=== PATIENT | female | born 1985 | race American Indian/Alaskan Native ===

== ENCOUNTER 2017-05-10 18:12 | Emergency (ER) | payer MEDICAID ==
[2017-05-10] MEDS ORDERED: XYLOCAINE 1% MPF 5 mL INFILTRATI ONE (21:03)
[2017-05-10] MEDS ORDERED: ROCEPHIN IM ONE (21:03)
[2017-05-10] MEDS ORDERED: ZITHROMAX PO ONE (21:03)
--- NOTE | 2017-05-10 21:37 | Emergency Department Report ---
ED General Adult HPI - General Chief complaint: Allergic Reaction Stated complaint: POSSIBLE ALLERGIC REACTION Time Seen by Provider: 05/10/17 19:44 Source: patient Mode of arrival: Ambulatory Limitations: No Limitations - History of Present Illness Initial comments: PT states she has been exposed to chlamydia. PT states she has had vaginal discharge. pt denies vagina itching or dysuria. PT also reports itchy rash on her face x 2 days. PT states she has been wearing more make up this year and she thinks she may be allergic to a new foundation, but she has also been using new skin products. MD Complaint: vaginal discharge, facial rash Onset/Timin -: Gradual, days(s) Location: face (rash ) Quality: other (face - itches ) Consistency: constant Improves with: none Worsens with: none Associated Symptoms: denies: fever/chills, loss of appetite, nausea/vomiting Treatments Prior to Arrival: none - Related Data Allergies Allergy/AdvReac Type Severity Reaction Status Date / Time Latex, Natural Rubber Allergy Rash Verified 05/10/17 18:41 ED Review of Systems ROS: Stated complaint: POSSIBLE ALLERGIC REACTION Other details as noted in HPI Comment: All other systems reviewed and negative ENT: denies: throat pain Respiratory: denies: shortness of breath Gastrointestinal: denies: abdominal pain Genitourinary: discharge. denies: dysuria, abnormal menses Skin: rash ED Past Medical Hx - Past Medical History Previous Medical History?: No - Surgical History Past Surgical History?: No - Social History Smoking Status: Never Smoker Substance Use Type: None ED Physical Exam - General Limitations: No Limitations General appearance: alert, in no apparent distress - Head Head exam: Present: atraumatic, normocephalic, other (urticaria to face, no edema noted ). Absent: normal inspection - Eye Eye exam: Present: normal appearance, PERRL. Absent: conjunctival injection, nystagmus - ENT ENT exam: Present: normal exam, normal external ear exam - Neck Neck exam: Present: normal inspection, full ROM - Respiratory Respiratory exam: Present: normal lung sounds bilaterally. Absent: respiratory distress, chest wall tenderness - Cardiovascular Cardiovascular Exam: Present: regular rate, normal rhythm, normal heart sounds - GI/Abdominal GI/Abdominal exam: Present: soft. Absent: tenderness - External exam: Present: normal external exam, other (female stogy roller at bedside ) Speculum exam: Present: vaginal discharge (white, thin ). Absent: erythema, cervical discharge, vaginal bleeding, foreign body, laceration Bi-manual exam: Present: normal bi-manual exam. Absent: cervical motion tendernes, adnexal tenderness, uterine enlargement, uterine tenderness - Extremities Exam Extremities exam: Present: normal inspection, full ROM - Back Exam Back exam: Present: normal inspection, full ROM. Absent: tenderness, CVA tenderness (R), CVA tenderness (L) - Neurological Exam Neurological exam: Present: alert, oriented X3, normal gait - Psychiatric Psychiatric exam: Present: normal affect, normal mood - Skin Skin exam: Present: warm, dry, intact, normal color ED Course Vital Signs 05/10/17 18:39 Temperature 98.2 F Pulse Rate 76 Respiratory 18 Rate Blood Pressure 110/76 O2 Sat by Pulse 100 Oximetry - Reevaluation(s) Reevaluation #1: 05/10/17 21:46 PT aware of wet prep results. PT states she must leave now. pt empirically treated for gc and ct - Pulse Oximetry Interpretation Digit-Finger Initial Pulse Oximetry Readin Actions Taken: none ED Medical Decision Making - Differential Diagnosis urticaria, std Critical Care Time: No Critical care attestation.: If time is entered above; I have spent that time in minutes in the direct care of this critically ill patient, excluding procedure time. ED Disposition Clinical Impression: STD exposure, Urticaria, Vaginal discharge Disposition: TO HOME OR SELFCARE Is pt being admited?: No Does the pt Need Aspirin: No Condition: Stable Instructions: Urticaria (ED), Sexually Transmitted Diseases (ED), Safe Sex (ED) , Condom Use (ED) Additional Instructions: No sex for the next 7 days. No [address] or alcohol after taking Vistaril Do not wear make up Skin test your make up and skin products before applying it to your face. Only use mild, hypoallergenic soap and lotions Follow up with PCP or health dept for full panel std testing Return to the ED if worsening or concerns Referrals: JCARLOS ANTUNEZ DR [Other] - 3-5 Days [facility] [Outside] - 3-5 Days Forms: Work/School Release Form(ED) Time of Disposition: 21:51
[2017-05-11 00:45] VITALS: BP 115/73
== END 2017-05-10 22:30 | disposition home or self-care (01) ==
LOC: ED 18:12
DX: L50.9 Urticaria, unspecified (principal); N89.8 Other specified noninflammatory disorders of vagina; Z20.2 Contact with and (suspected) exposure to infections with a predominantly sexual mode of transmission; Z91.040 Latex allergy status
CPT/HCPCS: 87210; 87591; 96372; 99283; J0696